=== PATIENT | male | born 1985 | race African-American/Black ===

== ENCOUNTER 2019-05-09 09:59 | Emergency (ER) | payer BC, OTHER ==
[~2019-05-09] VITALS: Ht 180.3 cm; Wt 99.8 kg
[2019-05-09] MEDS ORDERED: PROAIR HFA8.5 GM INH (10:45)
[2019-05-09] MEDS ORDERED: TESSALON PERLE100 M1 PO (10:45)
[2019-05-09] MEDS ORDERED: PREDNISONE 20 M20 MG PO (10:47)
[2019-05-09 11:26] VITALS: BP 125/77
== END 2019-05-09 11:26 | disposition home or self-care (01) ==
LOC: ER 09:59
DX: J45.901 Unspecified asthma with (acute) exacerbation (principal); F17.210 Nicotine dependence, cigarettes, uncomplicated; Z88.2 Allergy status to sulfonamides